=== PATIENT | female | born 1965 | race Caucasian/White ===

== ENCOUNTER 2016-11-13 10:33 | Emergency (ER) | payer MEDICAID, OTHER ==
[~2016-11-13] VITALS: Ht 172.7 cm; Wt 90.0 kg
[2016-11-13 10:34] VITALS: BP 132/82; PULSE 52; RESP 20; TEMP 97.9; O2SAT 98
[2016-11-13] MEDS ORDERED: TETANUS/DIPHTHERIA TOXOID ADULT 0.5 ML VIAL IM ONE (11:00)
[2016-11-13] MEDS ORDERED: LIDOCAINE 2%/EPINEPHrine 1:100,000 30ML MDV INFIL ONE (11:00)
--- NOTE | 2016-11-13 11:28 | PD ---
HPI Chief Complaint: Bite or Sting Time Seen by Provider: 11:09 Travel History International Travel<30 days: No Contact w/Intl Traveler<30days: No Traveled to known affect area: No History of Present Illness HPI Patient is a 51-year-old female presenting to emergency room for evaluation of a dog bite to her left wrist and forearm. 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 She reports that the owner manager of the dog stated that he was up-to-date with immunizations. Health department has been notified and per patient's report the dog will be quarantined. Patient is not up to date on her tetanus vaccine. She reports the pain as an 8 out of 10 and describes as aching and throbbing. He denies any other complaints at this time. [facility] Past Medical History Medical History: Denies Significant Hx ?: Not Family History Family History: Negative Social History Alcohol Use: No Tobacco Use: No Substance Use: No Allergies-Medications (Allergen,Severity, Reaction): Coded Allergies: Penicillin (Verified Allergy, Severe, Anaphylaxis, 11/13/16) Reported Meds & Prescriptions Reported Meds & Active Scripts Active No Active Prescriptions or Reported Medications Review of Systems Except as stated in HPI: all other systems reviewed are Neg Musculoskeletal: Positive: Myalgias, Edema, Pain Skin: Positive Change in Pigmentation, Positive Other Physical Exam Narrative GENERAL: Well-nourished, well-developed patient. SKIN: Focused skin assessment warm/dry. Left inner forearm has a 1.5 cm laceration, anterior left forearm with a one semi-laceration. There are several small puncture wounds to the dorsal aspect of the hand, wrist. Patient is neurovascularly intact with full range of motion in right hand and fingers. HEAD: Normocephalic. EYES: No scleral icterus. No injection or drainage. NECK: Supple, trachea midline. No JVD or lymphadenopathy. CARDIOVASCULAR: Regular rate and rhythm without murmurs, gallops, or rubs. RESPIRATORY: Breath sounds equal bilaterally. No accessory muscle use. GASTROINTESTINAL: Abdomen soft, non-tender, nondistended. MUSCULOSKELETAL: No cyanosis, or edema. BACK: Nontender without obvious deformity. No CVA tenderness. Data Data Last Documented VS Vital Signs Date Time Temp Pulse Resp B/P Pulse Ox O2 Delivery O2 Flow Rate FiO2 11/13/16 10:34 97.9 52 20 132/82 98 Room Air Orders Wound Care (11/13/16 10:54) Tetanus/Diphtheria Tox Adult (Tetanus/Di (11/13/16 11:00) Lidocai-Epi 2%-1:100,000 Inj (Xylocaine- (11/13/16 11:00) MDM Medical Decision Making Medical Screen Exam Complete: Yes Emergency Medical Condition: Yes Interpretation(s) Vital Signs Date Time Temp Pulse Resp B/P Pulse Ox O2 Delivery O2 Flow Rate FiO2 11/13/16 10:34 97.9 52 20 132/82 98 Room Air Differential Diagnosis Puncture wound versus laceration versus abrasion versus retained foreign body versus other Narrative Course Patient's 51-year-old female presenting to emergency for evaluation after she was bit by dog at work today. Patient's multiple small puncture wounds to the dorsal aspect of her left hand and wrist as well as 2 larger lacerations to the anterior posterior forearm. See procedure report for laceration repair. Patient's tetanus vaccine is updated in the emergency department today. She'll be placed on clindamycin due to her penicillin allergy. Patient was educated on signs and symptoms of infection. She is advised that sutures will need to be removed in 7-10 days. He was encouraged to keep sutures clean and dry, cover with gauze and topical antibiotics ointment. She was encouraged to return to emergency department for any new or worsening symptoms. Patient verbalized understanding of these instructions. Patient is stable for discharge. Procedures Procedure Narrative LACERATION LOCATION: Left inner forearm LENGTH: 2 cm NUMBER OF STITCHES/KELSEA: 6 stitches REPAIR: The area of the laceration was prepped with Betadine and sterilely draped. The laceration was infiltrated with 2% lidocaine with epi. The wound was copiously irrigated and explored without evidence of foreign body, tendon injury or neurovascular injury. The wound was closed using 4-0 Prolene. This was a 1 layer repair. A sterile dressing was applied. The patient was advised to keep the dressing clean and dry. Patient tolerated the procedure well. LACERATION LOCATION: Left anterior forearm LENGTH: 1.5 cm as well as several small puncture wounds. NUMBER OF STITCHES/KELSEA: 8 REPAIR: The area of the laceration was prepped with Betadine and sterilely draped. The laceration was infiltrated with 2% lidocaine with epi. The wound was copiously irrigated and explored without evidence of foreign body, tendon injury or neurovascular injury. The wound was closed using 4-0 Prolene. This was a 1 layer repair. A sterile dressing was applied. The patient was advised to keep the dressing clean and dry. Patient tolerated the procedure well. Diagnosis Primary Impression: Dog bite of arm Qualified Code: S41.152A - Dog bite of arm, left, initial encounter Additional Impression: Laceration of arm Qualified Code: S41.112A - Laceration of arm, left, initial encounter Referrals: Primary Care Physician 1 week Patient Instructions: Animal Bite (ED), Care For Your Stitches (ED), General Instructions, Laceration (ED) Departure Forms: Tests/Procedures, Work Release Enter return to work date: Nov 15, 2016 Special Instructions: Avoid getting stitches wet, do not submerge in water. Additional Instructions: Stitches will need to be removed in 7-10 days, you can return to emergency department to follow with her primary doctor Clean and dry, cover with nonocclusive dressing and topical antibiotic ointment. Return to emergency department for any new or worsening symptoms Complete full course of antibiotics as prescribed Med/Other Pt SpecificInfo: Prescription(s) given Scripts Tramadol 50 Mg Tab50 Mg PO Q6H PRN (PAIN) #7 TAB Ref 0 Prov:Marine Solitario MD 11/13/16 Ibuprofen 800 Mg [id number] Mg PO Q6HR PRN (PAIN) #40 TAB Ref 0 Prov:Myra Bills 11/13/16 Saccharomyces Boulardii (Florastor)250 Mg [id number] Mg PO BID 10 Days Ref 0 Prov:Myra Bills 11/13/16 Clindamycin 150 Mg [id number] Mg PO Q8HR 10 Days Ref 0 Prov:Myra Bills 11/13/16 Disposition: 01 DISCHARGE HOME Condition: Stable Myra Bills Nov 13, 2016 11:09
[2016-11-13] MEDS ORDERED: FLOR250C PO (12:04)
[2016-11-13] MEDS ORDERED: IBUP800T23 PO (12:04)
[2016-11-13] MEDS ORDERED: CLIN1CAP5 PO (12:04)
[2016-11-13] MEDS ORDERED: TRAM50TA PO (12:05)
== END 2016-11-13 12:23 | disposition home or self-care (01) ==
LOC: NEPD 10:33
DX: S51.812A Laceration without foreign body of left forearm, initial encounter (principal); W54.0XXA Bitten by dog, initial encounter
CPT/HCPCS: 12001; 12002; 90471; 90714